=== PATIENT | male | born 1975 | race Caucasian/White ===

== ENCOUNTER 2023-03-05 00:27 | Day surgery (SDC) | payer BC, SELFPAY ==
[2023-02-19 14:22] VITALS: BMI 32.0
--- NOTE | 2023-03-01 14:37 | SUR.PREOP ---
Patient called regarding upcoming procedure. No answer- message left with arrival time and phone number for questions.
[2023-03-05 07:42] VITALS: BP 185/93; PULSE 79; RESP 16; TEMP 36.6; O2SAT 98; BMI 31.6
[2023-03-05] MEDS: LACTATED RINGERS 1,000 ML 150 ML IV CONT (07:50)
--- NOTE | 2023-03-05 08:33 | WPDANESEPPF ---
Anes - Initial Pre Proc Eval Procedure: Operation Date: 03/05/23 09:15 Proposed Procedures p Screening Colonoscopy - Yong Jewell MD Date/Time: 03/05/23 08:33 Surgeon: Yong Jewell MD Pre Op Diagnosis: neoplasm screening Patient Data Age: 47 Gender: M Height: 1.83 m Weight: 105.7 kg Last Vital Signs Temp 97.8 F 03/05/23 07:42 Pulse 79 03/05/23 07:42 Resp 16 03/05/23 07:42 BP 185/93 H 03/05/23 07:42 Pulse Ox 98 03/05/23 07:42 O2 Del Method Room Air 03/05/23 07:42 Allergies Allergy/AdvReac Type Severity Reaction Status Date / Time No Known Drug Allergies Allergy Other Verified 03/05/23 07:41 Home Medications Medication Instructions Recorded Confirmed Type amlodipine 10 mg tablet 10 mg PO DAILY 04/19/22 03/05/23 History atenolol 100 mg tablet 100 mg PO DAILY 04/19/22 03/05/23 History blood sugar diagnostic (OneTouch 04/19/22 03/05/23 History Ultra Test strips) blood-glucose meter,continuous 04/19/22 03/05/23 History ([employer] G6 Enrollment Coordinator) blood-glucose sensor (Dexcom G6 04/19/22 03/05/23 History Sensor device) blood-glucose transmitter (Dexcom 04/19/22 03/05/23 History G6 Transmitter device) chlorthalidone 25 mg tablet 25 mg PO DAILY 04/19/22 03/05/23 History dulaglutide 1.5 mg/0.5 mL 1.5 mg subcut WEEKLY 04/19/22 03/05/23 History subcutaneous pen injector (Trulicity) icosapent ethyl 1 gram capsule 2 g PO BID 04/19/22 03/05/23 History (Vascepa) insulin degludec 200 unit/mL (3 100 unit subcut BID 04/19/22 03/05/23 History mL) subcutaneous pen (Tresiba FlexTouch U-200 insulin) metformin 1,000 mg tablet 1,000 mg PO BID 04/19/22 03/05/23 History multivitamin with minerals 1 tablet PO DAILY 04/19/22 03/05/23 History rosuvastatin 20 mg tablet 20 mg PO DAILY 04/19/22 03/05/23 History empagliflozin 10 mg tablet 10 mg PO DAILY 05/01/22 03/05/23 History (Jardiance) losartan 100 mg tablet 100 mg PO DAILY 05/01/22 03/05/23 History glimepiride 4 mg tablet 4 mg PO QAM #90 tabs 07/25/22 03/05/23 Rx coQ10 (ubiquinol) 200 mg capsule 200 mg PO DAILY 02/19/23 03/05/23 History Patient hx anesthesia problems: none Family hx anesthesia problems: none Results Review: All pre-operative results and documents have been reviewed as part of the pre-operative evaluation. 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 Family History Family History Father Heart disease Hypertension Kidney failure Cancer Mother Hypertension Grandparent Diabetes mellitus Social History Social History Smoking status: Never smoker Alcohol intake: current Alcohol use details: Very Little Substance use: never Substance use type: does not use Lack of Transportation: No Lack of Food: Never True Current Housing: I Have Housing Concerned About Future Housing: No Difficulty Paying Gas/Electric Bills: No Difficulty Paying for Meds: No Currently Unemployed: No Education: High School Diploma/GED Living arrangements: with family Additional living arrangements comments: Occupation/Education: occupation Gender identity (if verbalized by the patient): Male Sexual Orientation (if Verbalized by the Patient): Straight or Heterosexual Spiritual care concerns: No Ane
--- NOTE | 2023-03-05 08:56 | PM.HPGS ---
History of Present Illness History of Present Illness Consent: Risks, benefits, and alternatives have been discussed and questions answered. Patient agrees to proceed with procedure. Chief complaint: neoplasm screening Narrative: Randy Shipley is a 47 year old male here for first screening colonoscopy Review of Systems Constitutional: Constitutional: Denies headache(s) and Denies weakness Eyes: Eyes: Denies blurry vision ENT: Reports Normal hearing present, Denies headache(s) and Denies neck pain Cardiovascular: Cardiovascular: Denies chest pain and Denies dyspnea Respiratory: Respiratory: Denies dyspnea Gastrointestinal: Gastrointestinal: Reports no additional gastrointestinal complaints Genitourinary: Genitourinary: Denies dysuria Musculoskeletal: Musculoskeletal: Denies neck pain Integumentary/Breasts: Skin/Breast: Denies dry skin Neurologic: Reports Normal hearing present, Denies headache(s) and Denies weakness Psychiatric: Psychiatric: Denies anxiety Endocrine: Endocrine: Denies change in body appearance Hematologic/Lymphatic: Hematologic/Lymphatic: Denies easy bleeding Allergic/Immunologic: Allergic/Immunologic: Denies urticaria [facility] Past Medical History Medical History (Updated 03/05/23 @ 08:56 by Yong Jewell MD) Abnormal results of liver function studies Arthritis of first metatarsophalangeal (MTP) joint Colon cancer screening 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 History of kidney stones Had surgery to remove 2002 Hyperlipidemia, unspecified Hypertensive chronic kidney disease with stage 1 through stage 4 chronic kidney disease, or unspecified chronic kidney disease Pancreatitis Proteinuria, unspecified 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 Family History Family History Father Heart disease Hypertension Kidney failure Cancer Mother Hypertension Grandparent Diabetes mellitus Social History Social History Smoking status: Never smoker Alcohol intake: current Alcohol use details: Very Little Substance use: never Substance use type: does not use Lack of Transportation: No Lack of Food: Never True Current Housing: I Have Housing Concerned About Future Housing: No Difficulty Paying Gas/Electric Bills: No Difficulty Paying for Meds: No Currently Unemployed: No Education: High School Diploma/GED Living arrangements: with family Additional living arrangements comments: Occupation/Education: occupation Gender identity (if verbalized by the patient): Male Sexual Orientation (if Verbalized by the Patient): Straight or Heterosexual Spiritual care concerns: No Meds Home Medications and Allergies Home Medications Medication Instructions Recorded Confirmed Type amlodipine 10 mg tablet 10 mg PO DAILY 04/19/22 03/05/23 History atenolol 100 mg tablet 100 mg PO DAILY 04/19/22 03/05/23 History blood sugar diagnostic (OneTouch 04/19/22 03/05/23 History Ultra Test strips) blood-glucose meter,continuous 04/19/22 03/05/23 History ([employer] G6 Transmission Engineer) blood-glucose sensor (Dexcom G6 04/19/22 03/05/23 History Sensor device) blood-glucose transmitter (Dexcom 04/19/22 03/05/23 History G6 Transmitter device) chlorthalidone 25 mg tablet 25 mg PO DAILY 04/19/22 03/05/23 History dulaglutide 1.5 mg/0.5 mL 1.5 mg subcut WEEKLY 04/19/22 03/05/23 History subcutaneous pen injector (Trulicity) icosapent ethyl 1 gram capsule 2 g PO BID 04/19/22 03/05/23 History (Vascepa) insulin degludec 200 unit/mL (3 100 unit subcut BID 04/19/22 03/05/23 History mL) subcutaneous pen (Tresiba FlexTouch U-200 insulin) metformin 1,000 mg tablet 1,000 mg PO BID 04/19/22 03/05/23 History multivitamin with minerals 1 tablet PO DAILY 04/19/22
[2023-03-05 09:12] VITALS: BP 108/67; PULSE 78; RESP 20; O2SAT 96
[2023-03-05 09:22] VITALS: BP 110/77; PULSE 72; RESP 20; O2SAT 97
== END 2023-03-05 09:36 | disposition home or self-care (01) ==
PROVIDERS: PCP Family Medicine; Visit Provider Internal Medicine Gastroenterology
PROC: 0DJD8ZZ Inspection of Lower Intestinal Tract, Via Natural or Artificial Opening Endoscopic (ICD-10-PCS; CPT 45378; principal; 2023-03-05 09:15)
DX: Z12.31 Encounter for screening mammogram for malignant neoplasm of breast (principal); K57.30 Diverticulosis of large intestine without perforation or abscess without bleeding; K64.8 Other hemorrhoids; D12.4 Benign neoplasm of descending colon; K62.1 Rectal polyp; E78.5 Hyperlipidemia, unspecified; I12.9 Hypertensive chronic kidney disease with stage 1 through stage 4 chronic kidney disease, or unspecified chronic kidney disease; N18.9 Chronic kidney disease, unspecified; K85.90 Acute pancreatitis without necrosis or infection, unspecified; E11.319 Type 2 diabetes mellitus with unspecified diabetic retinopathy without macular edema; E11.21 Type 2 diabetes mellitus with diabetic nephropathy; E66.9 Obesity, unspecified; Z68.31 Body mass index [BMI] 31.0-31.9, adult; Z79.84 Long term (current) use of oral hypoglycemic drugs; Z79.4 Long term (current) use of insulin; Z79.85 Long-term (current) use of injectable non-insulin antidiabetic drugs; Z86.69 Personal history of other diseases of the nervous system and sense organs; Z82.49 Family history of ischemic heart disease and other diseases of the circulatory system; Z80.9 Family history of malignant neoplasm, unspecified
CPT/HCPCS: 45385; 45380; 88305; J2001; J2704; J7120